=== PATIENT | female | born 2000 | race Caucasian/White ===

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

== ENCOUNTER 2021-05-24 17:25 | Outpatient (CLI) | payer MEDICAID, SELFPAY ==
[2021-05-24 17:36] VITALS: RESP 18
[2021-05-24 17:39] VITALS: RESP 17
[2021-05-24 17:42] VITALS: BP 123/70; PULSE 104
[2021-05-24 17:46] VITALS: BMI 36.7
[2021-05-24 18:23] LABS: Add Urine Culture? No; Bacteria Urine 1+ /hpf; Bilirubin Urine Neg (Negative); Blood Urine Neg (Negative); Glucose Urine UA Norm (Normal); Ketones Urine Negative (Negative); Leukocyte Esterase Urine Negative (Negative); Nitrate Urine Negative (Negative); Protein Urine Neg (Negative); RBC Urine RARE /hpf (0-2); Specific Gravity, Urine 1.005 (1.005-1.030); Squamous Epithelial Cell Urine RARE /hpf (0-5); Urine Appearance Clear (CLEAR); Urine Color Straw (Yellow); Urobilinogen Urine Neg (Negative); WBC Urine 0-4 /hpf (0-5); pH Urine 5 (5-7)
[2021-05-24 18:30] VITALS: RESP 17
[2021-05-24] MEDS: terbutaline 1 mg/mL INJ 0.25 MG SUBCUT (18:48)
[2021-05-24] MEDS: nitrofurantoin SR (BID) 100 mg Capsule PO (18:48)
[2021-05-24 19:40] VITALS: BP 115/58; PULSE 125
[2021-05-24 20:04] LABS: Nitrazine Paper, PH Negative
== END 2021-05-24 19:43 | disposition home or self-care (01) ==
LOC: OPOB 17:27 → OBGYN 17:28
PROVIDERS: Visit Provider Family Medicine
DX: O26.899 Other specified pregnancy related conditions, unspecified trimester (principal); Z3A.00 Weeks of gestation of pregnancy not specified; N89.8 Other specified noninflammatory disorders of vagina; R10.9 Unspecified abdominal pain
CPT/HCPCS: 59025; 81001; 83986; 96372; 99211; J3105

== ENCOUNTER 2021-06-17 12:00 | Outpatient (CLI) | payer MEDICAID, SELFPAY ==
[2021-06-17 12:19] VITALS: BP 120/72; PULSE 83
[2021-06-17 12:40] VITALS: BP 109/68; PULSE 82
[2021-06-17 13:04] VITALS: BP 109/68; PULSE 82; RESP 18; TEMP 36.9
== END 2021-06-17 12:55 | disposition home or self-care (01) ==
LOC: OPOB 12:06 → OBGYN 12:07
PROVIDERS: Visit Provider Family Medicine
DX: O26.899 Other specified pregnancy related conditions, unspecified trimester (principal); Z3A.00 Weeks of gestation of pregnancy not specified; R10.9 Unspecified abdominal pain; R10.2 Pelvic and perineal pain
CPT/HCPCS: 83986

== ENCOUNTER 2021-06-25 21:00 | Inpatient (IN) | payer MEDICAID, SELFPAY ==
[2021-06-25] VITALS (9 sets, daily range): BP systolic 116–129; BP diastolic 68–77; PULSE 81–112; RESP 16; TEMP 36.1–36.4; BMI 38.5
[2021-06-25] MEDS: dextrose 5%-lactated ringers 1,000 ML 125 ML IV (21:01)
[2021-06-25 21:07] LABS: Basophils % 0.2 %; Eosinophils # 0.1 10^3/uL (0.0-0.8); Eosinophils % 0.5 %; Hematocrit 34.1 % (37.0-47.0); Hemoglobin 11.1 g/dL (11.5-15.3); Lymphocytes # 2.3 10^3/uL (1.5-6.5); Lymphocytes % 21.4 %; Mean Corpuscular HGB Conc 32.6 g/dL (30.0-36.0); Monocytes # 0.9 10^3/uL (0.2-0.9); Monocytes % 8.7 %; Neutrophils # 7.23 10^3/uL (1.8-8.0); Neutrophils % 68.5 %; Nucleated Red Blood Cells % 0 %; Platelet Count 353 10^3/cmm (130-400); Red Blood Count 4.11 10^6/uL (4.1-5.3); Red Cell Distribution Width 15.3 % (12.1-15.1); White Blood Count 10.6 10^3/uL (4.5-13.0)
[2021-06-25] MEDS: miSOPROStol 100 mcg tablet 25 MCG VAGINAL (21:15)
[2021-06-26] VITALS (72 sets, daily range): BP systolic 105–147; BP diastolic 55–91; PULSE 67–147; RESP 16–19; TEMP 35.8–36.8; O2SAT 93–100
[2021-06-26] MEDS: miSOPROStol 100 mcg tablet 25 MCG VAGINAL ×2 (01:17→06:18)
[2021-06-26] MEDS: lactated ringers 1,000 ML 999 ML IV (05:49)
[2021-06-26] MEDS: oxytocin 30 UNIT/500 ML BAG IV (10:45)
[2021-06-26] MEDS: dextrose 5%-lactated ringers 1,000 ML 125 ML IV (15:20)
[2021-06-26] MEDS: fentaNYL 50 mcg/mL INJ 2mL IVP ×3 (16:10→18:27)
[2021-06-26] MEDS: ondansetron 2 mg/ML SDV 2 mL 4 MG IVP (18:03)
--- NOTE | 2021-06-26 19:00 | ANES.PAUD2 ---
Pre-Anesthetic Update Pre-Anesthetic Assessment: Date of Surgery/Procedure: 06/27/21 Proposed Procedure: Operation Date: 06/26/21 19:20 Proposed Procedures p Section(Not Applicable) - Zoila Levine MD Any changes to Pre-Anesthetic Assessment?: No Last Intake: Intake Last Liquid Date 06/25/21 Last Liquid Time 18:00 Last Solid Date 06/25/21 Last Solid Time 19:30 Labs Last 48hrs: Short CBC 06/25/21 06/27/21 Range/Units 20:40 08:00 WBC 10.6 20.3 H (4.5-13.0) 10^3/ uL Hgb 11.1 L 8.6 L (11.5-15.3) g/dL Hct 34.1 L 26.4 L (37.0-47.0) % MCV 83.0 84.1 (81-99) fl Plt Count 353 286 (130-400) 10^3/c mm Neut % (Auto) 68.5 % Neut # (Auto) 7.23 (1.8-8.0) 10^3/u L Vitals: Temperature 98.0 F 06/27/21 06:00 Temperature Source Oral 06/27/21 06:00 Pulse Rate 76 06/27/21 06:00 Pulse Rhythm 06/26/21 08:21 Pulse Strength 3+ Normal 06/26/21 08:21 Respiratory Rate 17 06/27/21 06:00 Respiratory Effort Non-Labored 06/26/21 18:27 Respiratory Depth Normal 06/26/21 18:27 Respiratory Patter n 06/26/21 18:27 Blood Pressure 115/74 06/27/21 06:00 Blood Pressure Jo n 87 06/27/21 06:00 Blood Pressure Pos ition Semi Fowlers 06/27/21 06:00 Pulse Oximetry 96 06/27/21 06:00 Oxygen Delivery Me thod 06/27/21 06:00 Other Pertinent Information: Other Pertinent Information: STAT for heart tones in 80s, unable to obtain updated history or NPO status, surgeon stating we don't have time for spinal, so GETA Cardiac Studies: No Data to Display
[2021-06-26] MEDS: terbutaline 1 mg/mL INJ (19:07)
[2021-06-26] MEDS: famotidine 20 mg/2 mL INJ IVP (19:19)
[2021-06-26] MEDS: metoclopramide 5 mg/mL SDV 2 mL 10 MG IV (19:19)
[2021-06-26] MEDS: citric acid-sodium citrate 30 mL UDC PO (19:19)
--- NOTE | 2021-06-26 19:39 | PC.NURSE ---
Terbutaline 0.25mg given subcutaneously at [address] Levine's emergent orders.
--- NOTE | 2021-06-26 20:19 | PM.OPHPUD ---
Labor & Delivery H&P Update Date of Procedure: June 26, 2021 Date H&P Performed: 06/20/21 Admission Diagnosis: IUP at 40 weeks 6 days gestation Planned procedure: Induction of labor
--- NOTE | 2021-06-26 20:20 | PM.OP ---
Operative Report Date of procedure: June 26, 2021 Pre-op diagnosis: IUP at 40 weeks 6 days gestation Nonreassuring heart tones Procedure done: Emergent primary low transverse section Specimens removed/disposition: Vertex female weight 7 pounds 5 ounces, 3305 g, Apgars 8 and 9 Surgeon: Zoila Levine MD Anesthesia: General Estimated blood loss (mL): 600 IV fluids (mL): 1,000 Brief History: This is a 20-year-old G1, P0 at 40 weeks 6 days gestation who was admitted for postdate induction. Her cervix was not favorable so she received Cytotec x3. She was then started on Pitocin. She underwent artificial rupture of membranes with a lightly meconium stained fluid. She declined an epidural but had fentanyl for pain management. She was slow to dilate. When she was 2 cm and completely effaced I placed an IUPC catheter and suddenly the FHTs decelerated. There was no bleeding and the IUPC was removed in its entirety but heart tones remained in the low 80s. We tried position changes and scalp stimulation but there was no response in HR. Emergent was called. Pt was positioned in hands and knees and finally FHTs recovered. Mother was kept in hands and knees position until she was transferred to the OR table. Procedure: The patient was urgently prepped and draped in normal sterile fashion in dorsal supine position with the left lateral tilt. General anesthesia was administered. A Pfannenstiel skin incision was made and carried through the underlying layer of fascia sharply. There was already diastases of the rectus muscles so the peritoneum was entered bluntly using my hand. The bladder blade was inserted and uterine incision was made in a transverse fashion in the lower uterine segment. Amniotic rupture of membranes was performed sharply. The infant was delivered atraumatically with bulb suction of the mouth and nares at delivery. The cord was clamped and cut and the infant was handed to the waiting pediatric team. Cord blood was obtained. Gentle traction on the cord and fundal pressure was used to deliver the placenta. As the placenta was delivered the uterus everted. The placenta was immediately removed in its entirety and the uterus was easily inverted. The uterus was then exteriorized from the abdomen and a dry sponge was used to clear the uterus of clots and debris. The uterine incision was repaired using 0 Vicryl in a running locked fashion. A second layer of 0 chromic was used in an imbricating manner. There was good hemostasis at the incision site. The uterus was rather floppy and boggy and Pitocin was added to the IV fluids. The uterus was returned to the abdomen and irrigation was used to clear the gutters of clots and debris. The uterine incision was reinspected for hemostasis. The peritoneum and rectus muscles were then gently reapproximated using 4-0 Vicryl in a running fashion. The fascia was then reapproximated using 0 Vicryl in a running fashion. The subcutaneous tissue was irrigated and any small bleeders were coagulated using the Bovie. The subcutaneous tissue was then reapproximated using 4-0 Vicryl. The skin was then reapproximated using 4-0 Vicryl in a running fashion on a Asif needle. Steri-Strips and a pressure bandage were applied. Patient was awakened in the OR and went to recovery in good condition. Sponge instrument and needle counts were correct.
[2021-06-27] VITALS (8 sets, daily range): BP systolic 103–118; BP diastolic 68–87; PULSE 64–103; RESP 16–18; TEMP 36.7–36.8; O2SAT 96–100
[2021-06-27] MEDS: HYDROcodone-acetaminophen 5-325 mg Tablet PO ×4 (01:13→21:40)
[2021-06-27] MEDS: dextrose 5%-lactated ringers 1,000 ML 125 ML IV ×2 (01:52→10:23)
[2021-06-27] MEDS: ketorolac 30 mg/mL INJ IVP ×2 (02:01→07:46)
[2021-06-27] MEDS: prenatal vitamin Capsule 1 CAP PO (07:46)
[2021-06-27] MEDS: docusate sodium 100 mg Capsule PO ×2 (07:46→18:17)
[2021-06-27 08:12] LABS: Hematocrit 26.4 % (37.0-47.0); Hemoglobin 8.6 g/dL (11.5-15.3); Mean Corpuscular HGB Conc 32.6 g/dL (30.0-36.0); Mean Corpuscular Hemoglobin 27.4 pg (28.0-34.0); Mean Corpuscular Volume 84.1 fl (81-99); Platelet Count 286 10^3/cmm (130-400); Red Blood Count 3.14 10^6/uL (4.1-5.3); Red Cell Distribution Width 15.7 % (12.1-15.1); White Blood Count 20.3 10^3/uL (4.5-13.0)
--- NOTE | 2021-06-27 09:51 | ANE.PACU2 ---
Inpatient post-anesthesia follow up: Airway intact: Yes Vital signs: Temperature 98.0 F Pulse Rate 76 Respiratory Rate 17 Blood Pressure 115/74 Pulse Oximetry 96 Oxygen Delivery Me thod Room Air Oxygen Flow Rate Fraction of Inspir ed Oxygen Hydration adequate: Yes Nausea and vomiting: No Pain level: 3 Mental status: Baseline Additional Comments: Patient had no questions or concerns regarding her anesthetic. No mention by patien tof any intraop recall julián-induction.
--- NOTE | 2021-06-27 16:53 | P.PN_ITS ---
Subjective Subjective: Patient just recently had a Bob removed so she has not voided yet. She is tolerating a liquid diet. She cannot quantify for me if her bleeding is like a heavy period regular or light. She says she only knows it just feels wet down there Vitals/I&O/Wt Last Vital Signs Temp 98.2 F 06/27/21 14:59 Pulse 64 06/27/21 14:59 Resp 18 06/27/21 14:59 BP 117/80 06/27/21 14:59 Pulse Ox 99 06/27/21 14:59 06/27/21 06/27/21 06/27/21 06:59 14:59 22:59 Intake Total 1000 / 1000 Output Total 400 / 400 800 / 1200 Balance 600 / 600 -800 / -200 Weight last 48 hrs Weight 78.018 kg Physical Exam Narrative: Alert and oriented sitting in bed, pupils equal round reactive to light, extraocular movements intact, abdomen is soft with appropriate postoperative tenderness, pressure dressing is still in place and is clean dry and intact, nonpitting extremity edema is present Urinary Catheter Management: Bob Latex: Cath Placed During This Visit: yes, but has since been removed by the nurse Reason for Continuing Indwelling Catheter: Decision to DC Catheter Urinary Catheter Date of Insertion: 06/26/21 Urinary Catheter Time of Insertion: 20:15 Date Urinary Catheter Removed: 06/27/21 Time Urinary Catheter Discontinued: 15:50 Data : 06/27/21 08:00 A&P Assessment and plan (1) Status post primary low transverse section: Routine postoperative and care. She was instructed to shower tonight and take off the pressure bandage. She should ambulate in the halls at least twice tonight. Status: Acute Attestations Medical Necessity Statement*: Routine postoperative and care Coding Level of Care Code Acute Rheumatology Nurse for Chg Fwd Diagnoses Status post primary low transverse section Z98.891
[2021-06-27] MEDS: ferrous sulfate EC 325 mg Tablet PO (18:16)
[2021-06-27] MEDS: ibuprofen 800 mg tablet PO (21:40)
[2021-06-28 04:43] VITALS: BP 112/74; PULSE 89; RESP 16; O2SAT 98
[2021-06-28 08:50] VITALS: BP 117/76; PULSE 103; RESP 16; TEMP 37.2
[2021-06-28] MEDS: ibuprofen 800 mg tablet PO ×2 (08:54→17:32)
[2021-06-28] MEDS: ferrous sulfate EC 325 mg Tablet PO ×2 (08:54→17:31)
[2021-06-28] MEDS: prenatal vitamin Capsule 1 CAP PO (08:54)
[2021-06-28] MEDS: docusate sodium 100 mg Capsule PO ×2 (08:54→17:32)
--- NOTE | 2021-06-28 12:17 | P.DS_ITS ---
Discharge Providers Date of Admission: 06/25/21 21:00 Date of Discharge: June 28, 2021 Attending Provider at Admission: Zoila Levine MD Attending Provider at Discharge: Zoila Levine MD Diagnoses at Discharge Discharge Diagnosis (1) Status post primary low transverse section: Status: Acute Reason for Visit Reason for Visit: induction Hospital Course Hospital Course This is a 20-year-old G1 now P1 who was admitted for postdate induction. She underwent emergency section for nonreassuring heart tones. She did well postoperatively. She was ambulating, tolerating a regular diet, had good pain control and decreased vaginal bleeding on the day of discharge. Physical Exam Narrative: Alert and oriented, sitting on the side of bed, heart regular rate and rhythm, lungs clear to auscultation bilaterally, abdomen is soft with appropriate postoperative tenderness, incision is intact, Steri-Strips are moist, there is nonpitting pedal edema. Urinary Catheter Management: Bob Latex: Cath Placed During This Visit: yes, but has since been removed by the nurse Reason for Continuing Indwelling Catheter: Decision to DC Catheter Urinary Catheter Date of Insertion: 06/26/21 Urinary Catheter Time of Insertion: 20:15 Date Urinary Catheter Removed: 06/27/21 Time Urinary Catheter Discontinued: 15:30 Discharge Data Studies Completed and Pending Laboratory Results WBC 20.3 10^3/uL (4.5-13.0) H 06/27/21 08:00 RBC 3.14 10^6/uL (4.1-5.3) L 06/27/21 08:00 Hgb 8.6 g/dL (11.5-15.3) L 06/27/21 08:00 Hct 26.4 % (37.0-47.0) L 06/27/21 08:00 MCV 84.1 fl (81-99) 06/27/21 08:00 MCH 27.4 pg (28.0-34.0) L 06/27/21 08:00 MCHC 32.6 g/dL (30.0-36.0) 06/27/21 08:00 RDW 15.7 % (12.1-15.1) H 06/27/21 08:00 Plt Count 286 10^3/cmm (130-400) 06/27/21 08:00 MPV 11.0 fL (7.4-10.4) H 06/27/21 08:00 Neut % (Auto) 68.5 % 06/25/21 20:40 Lymph % (Auto) 21.4 % 06/25/21 20:40 [place] % (Auto) 8.7 % 06/25/21 20:40 Eos % (Auto) 0.5 % 06/25/21 20:40 Baso % (Auto) 0.2 % 06/25/21 20:40 Neut # (Auto) 7.23 10^3/uL (1.8-8.0) 06/25/21 20:40 Lymph # (Auto) 2.3 10^3/uL (1.5-6.5) 06/25/21 20:40 [place] # (Auto) 0.9 10^3/uL (0.2-0.9) 06/25/21 20:40 Eos # (Auto) 0.1 10^3/uL (0.0-0.8) 06/25/21 20:40 Baso # (Auto) 0.0 10^3/uL (0.0-0.1) 06/25/21 20:40 Nucleated RBC % (auto) 0 % 06/25/21 20:40 Nucleated RBCs # 0.0 /100WBC 06/25/21 20:40 Vitals Last Vital Signs Temp 98.9 F 06/28/21 08:50 Pulse 103 H 06/28/21 08:50 Resp 16 06/28/21 08:50 BP 117/76 06/28/21 08:50 Pulse Ox 98 06/28/21 04:43 Discharge Plan Discharge Patient Disposition: Home Condition: Stable Prescriptions: New ibuprofen 800 mg Tablet 800 mg PO TID PRN (Reason: Abdominal Discomfort) Qty: 40 0RF hydrocodone-acetaminophen 5-325 mg Tablet 1 - 2 tab PO Q4H PRN (Reason: Moderate To Severe Pain) Qty: 12 0RF docusate sodium 100 mg Capsule 100 mg PO BID Qty: 60 0RF No Action No Known Home Medications 0RF Discharge Orders: Discharge Order (Routine); Ordered 06/28/21 Ordered By: Zoila Levine Discharge Diet: Usual diet Discharge Activity: Limit activity as instructed Patient Instructions: Opioid Safety Activity Restrictions/Additional Instructions: No lifting more than 10 lbs for 2 weeks. Nothing per vagina for 6 weeks. Discharge Attestations Time Spent in Discharge Care*: less than 30 min Quality Metrics Clinical Quality Measures [ No reported AMI, CVA or VTE this stay] Coding Level of Care Code Acute Chg FW DC note Diagnoses Status post primary low transverse section Z98.891
[2021-06-28 17:10] VITALS: BP 112/72; PULSE 114; RESP 16; TEMP 36.7
[2021-06-28] MEDS: HYDROcodone-acetaminophen 5-325 mg Tablet PO (17:32)
== END 2021-06-28 17:45 | disposition home or self-care (01) | DRG 788 ==
LOC: OPOB 06-26 04:37 → OBGYN 06-26 04:40
PROVIDERS: Admitting Provider Family Medicine; Visit Provider Family Medicine
PROC: 10D00Z1 Extraction of Products of Conception, Low, Open Approach (ICD-10-PCS; CPT 59514; principal; 2021-06-26 19:20)
DX: O48.0 Post-term pregnancy (principal); Z3A.40 40 weeks gestation of pregnancy; O76 Abnormality in fetal heart rate and rhythm complicating labor and delivery; O77.0 Labor and delivery complicated by meconium in amniotic fluid; Z37.0 Single live birth
CPT/HCPCS: 36415; 51702; 85025; 85027; J0330; J1100; J1885; J2405; J2704; J2765; J3010; J3105; J3490; J7030

== ENCOUNTER → 2022-09-02 16:35 | Outpatient (BNVA) | payer MEDICAID, SELFPAY | DX: Z34.90 Encounter for supervision of normal pregnancy, unspecified, unspecified trimester (principal); Z3A.01 Less than 8 weeks gestation of pregnancy | CPT/HCPCS: 81025 ==

== ENCOUNTER → 2024-04-17 11:38 | Outpatient (BNVA) | payer MEDICAID, SELFPAY | DX: N92.6 Irregular menstruation, unspecified (principal) | CPT/HCPCS: 81025 ==

== ENCOUNTER → 2024-05-11 13:33 | Outpatient (BNVA) | payer MEDICAID, SELFPAY | PROVIDERS: Visit Provider Nurse Practitioner Women's Health | DX: Z34.90 Encounter for supervision of normal pregnancy, unspecified, unspecified trimester (principal); N91.2 Amenorrhea, unspecified | CPT/HCPCS: 81025; 84702; 86850; 86900 ==

== ENCOUNTER → 2024-05-26 15:32 | Outpatient (BNVA) | payer SELFPAY | PROVIDERS: Visit Provider Nurse Practitioner Women's Health | DX: O26.91 Pregnancy related conditions, unspecified, first trimester (principal); Z3A.09 9 weeks gestation of pregnancy | CPT/HCPCS: 76801 ==

== ENCOUNTER → 2024-06-01 13:53 | Outpatient (BNVA) | payer SELFPAY | PROVIDERS: Visit Provider Nurse Practitioner Women's Health | DX: Z34.90 Encounter for supervision of normal pregnancy, unspecified, unspecified trimester (principal) | CPT/HCPCS: 80307; 84315; 84443; 85025; 86592; 86762; 86803; 86850; 86900; 87086; 87340; 87491; 87591; 87661; 87806 ==

== ENCOUNTER → 2024-06-16 14:23 | Outpatient (BNVA) | payer SELFPAY | PROVIDERS: Visit Provider Obstetrics & Gynecology | DX: Z34.90 Encounter for supervision of normal pregnancy, unspecified, unspecified trimester (principal) | CPT/HCPCS: 84315 ==

== ENCOUNTER → 2024-07-14 10:07 | Outpatient (BNVA) | payer SELFPAY | PROVIDERS: Visit Provider Obstetrics & Gynecology | DX: Z34.90 Encounter for supervision of normal pregnancy, unspecified, unspecified trimester (principal) | CPT/HCPCS: 84315 ==

== ENCOUNTER → 2024-08-11 09:26 | Outpatient (BNVA) | payer MEDICAID, SELFPAY | PROVIDERS: Visit Provider Obstetrics & Gynecology | DX: O26.892 Other specified pregnancy related conditions, second trimester (principal); Z3A.20 20 weeks gestation of pregnancy | CPT/HCPCS: 76805 ==

== ENCOUNTER → 2024-08-18 10:05 | Outpatient (BNVA) | payer MEDICAID, SELFPAY | PROVIDERS: Visit Provider Obstetrics & Gynecology | DX: Z34.80 Encounter for supervision of other normal pregnancy, unspecified trimester (principal) | CPT/HCPCS: 81000 ==

== ENCOUNTER → 2024-09-07 08:49 | Outpatient (BNVA) | payer MEDICAID, SELFPAY | PROVIDERS: Visit Provider Nurse Practitioner Women's Health | DX: Z34.80 Encounter for supervision of other normal pregnancy, unspecified trimester (principal) | CPT/HCPCS: 84315 ==

== ENCOUNTER → 2024-09-14 15:35 | Outpatient (BNVA) | payer MEDICAID, SELFPAY | PROVIDERS: Visit Provider Obstetrics & Gynecology | DX: O26.892 Other specified pregnancy related conditions, second trimester (principal); Z3A.25 25 weeks gestation of pregnancy | CPT/HCPCS: 76816 ==

== ENCOUNTER → 2024-10-04 14:17 | Outpatient (BNVA) | payer MEDICAID, SELFPAY | PROVIDERS: Visit Provider Obstetrics & Gynecology | DX: Z34.80 Encounter for supervision of other normal pregnancy, unspecified trimester (principal) | CPT/HCPCS: 82950; 84315; 85025 ==

== ENCOUNTER → 2024-10-19 14:47 | Outpatient (BNVA) | payer MEDICAID, SELFPAY | PROVIDERS: Visit Provider Nurse Practitioner Women's Health | DX: Z34.90 Encounter for supervision of normal pregnancy, unspecified, unspecified trimester (principal) | CPT/HCPCS: 84315 ==

== ENCOUNTER 2024-11-03 11:55 | Outpatient (CLI) | payer MEDICAID, SELFPAY ==
[2024-11-03 12:06] VITALS: BP 113/59; PULSE 96
[2024-11-03 12:12] VITALS: BMI 35.4
[2024-11-03 12:51] VITALS: BP 101/63; PULSE 93
== END 2024-11-03 12:55 | disposition home or self-care (01) ==
LOC: OPOB 11:55 → OBGYN 11:56
PROVIDERS: Visit Provider Obstetrics & Gynecology
DX: O26.899 Other specified pregnancy related conditions, unspecified trimester (principal); Z3A.00 Weeks of gestation of pregnancy not specified; R10.9 Unspecified abdominal pain
CPT/HCPCS: 59025; 99211

== ENCOUNTER → 2024-11-04 12:52 | Outpatient (BNVA) | payer MEDICAID, SELFPAY | PROVIDERS: Visit Provider Obstetrics & Gynecology | DX: Z34.90 Encounter for supervision of normal pregnancy, unspecified, unspecified trimester (principal) | CPT/HCPCS: 84315 ==

== ENCOUNTER → 2024-11-23 08:36 | Outpatient (BNVA) | payer MEDICAID, SELFPAY | PROVIDERS: Visit Provider Nurse Practitioner Women's Health | DX: Z34.80 Encounter for supervision of other normal pregnancy, unspecified trimester (principal) | CPT/HCPCS: 84315 ==

== ENCOUNTER 2024-11-29 12:46 | Outpatient (CLI) | payer MEDICAID, SELFPAY ==
--- NOTE | 2024-11-29 13:00 | USR_ITS ---
PROCEDURE INFORMATION: Exam: US , Follow up Exam date and time: 11/29/2024 1:03 PM Age: 24 years old Clinical indication: Screening exam; Routine US, uterus; Additional info: Z34.90 - encounter for supervision of normal , u. . . , Please schedule between 11/29 and 12/03 LABS AND CLINICAL REPORTS: Gestational age (Established): 36 w 6 d Estimated due date (Established): 12/21/2024 TECHNIQUE: Imaging protocol: Transabdominal ultrasound of the uterus, real time with image documentation. Follow-up (eg, re-evaluation of size by measuring standard growth parameters and amniotic fluid volume, re-evaluation of organ system(s) suspected or confirmed to be abnormal on a previous scan). COMPARISON: [place] [id number] 09/14/2024 3:43 PM FINDINGS: Gestation: Single live intrauterine in cephalic presentation. heart rate: 145 bpm Placenta: Placenta is posterior and fundal in location. Amniotic fluid index: JOSS is 11.76 cm. BIOMETRY: Estimated weight: 2992.06 g. EFW by AC, BPD, FL, HC, [place] 1985, 49% percentile Biparietal diameter (BPD): 9.17 cm. EGA (BPD) is 37 w 2 d. 74 % percentile Head circumference (HC): 31.98 cm. EGA (HC) is 36 w 0 d. 10 % percentile Abdominal circumference (AC): 32.52 cm. EGA (AC) is 36 w 3 d. 51.1 % percentile Femur length (FL): 7.24 cm. EGA (FL) is 37 w 0 d. 54.1 % percentile HC/AC: 0.98. (Normal range: 0.92 - 1.06) FL/HC: 22.64. (Normal range: 20.6 - 22.46) FL/BPD: 78.95. (Normal range: 71 - 87) FL/AC: 22.26. (Normal range: 20 - 24) MATERNAL: Cervix: Cervical length measures 4 cm. Cervix appears closed. US/[place] [id number] IMPRESSION: Single live intrauterine with a mean sonographic age of 36 weeks 5 days. This corresponds to a clinical age of 36 weeks 6 days. There has been appropriate interval growth since the prior study.
== END 2024-11-29 12:47 | disposition home or self-care (01) ==
LOC: RAD 12:47
PROVIDERS: PCP Family Medicine; Visit Provider Obstetrics & Gynecology
DX: Z34.93 Encounter for supervision of normal pregnancy, unspecified, third trimester (principal)
CPT/HCPCS: 76816

== ENCOUNTER → 2024-12-02 12:51 | Outpatient (BNVA) | payer MEDICAID, SELFPAY | PROVIDERS: PCP Family Medicine; Visit Provider Obstetrics & Gynecology | DX: Z34.90 Encounter for supervision of normal pregnancy, unspecified, unspecified trimester (principal) | CPT/HCPCS: 84315; 87081 ==

== ENCOUNTER → 2024-12-06 15:24 | Outpatient (BNVA) | payer MEDICAID, SELFPAY | PROVIDERS: PCP Family Medicine; Visit Provider Obstetrics & Gynecology | DX: Z34.90 Encounter for supervision of normal pregnancy, unspecified, unspecified trimester (principal) | CPT/HCPCS: 84315 ==

== ENCOUNTER → 2024-12-16 16:43 | Outpatient (BNVA) | payer MEDICAID, SELFPAY | PROVIDERS: Visit Provider Obstetrics & Gynecology | DX: Z34.90 Encounter for supervision of normal pregnancy, unspecified, unspecified trimester (principal) | CPT/HCPCS: 84315 ==

== ENCOUNTER 2024-12-21 05:05 | Inpatient (IN) | payer MEDICAID, SELFPAY ==
[2024-12-21] VITALS (108 sets, daily range): BP systolic 95–130; BP diastolic 51–87; PULSE 58–97; RESP 16; TEMP 35.9–36.6; O2SAT 90–100; BMI 37.6
--- NOTE | 2024-12-21 05:24 | PC.NURSE ---
Patient reports she last ate a [employer] bar at 0100, previous to this she ate dinner at 1830. Patient reports she last drank at 0500, patient states that she has been sipping on coffee with cream and sugar this morning.
[2024-12-21 05:36] LABS: Hematocrit 36.3 % (36-47); Hemoglobin 12.00 g/dL (11.27-16.99); Mean Corpuscular HGB Conc 33.1 g/dL (30-55); Mean Corpuscular Hemoglobin 28.6 pg (27-33); Mean Corpuscular Volume 86.6 fl (85-98); Nucleated Red Blood Cells % 0 %; Platelet Count 311 10^3/cmm (157-399); Red Blood Count 4.19 10^6/uL (3.85-5.65); White Blood Count 10.40 10^3/uL (3.29-11.43)
--- NOTE | 2024-12-21 07:11 | PM.OBGYHP ---
Providers/Chief Complaint Admitting Physician: Vitor Wheat MD Primary ELECTRONIC SEMICONDUCTOR PROCESSOR: Vitor Wheat MD Primary Care Provider: Kurt Thurman MD Chief Complaint: updated OBGYN HPI ELECTRONIC SEMICONDUCTOR PROCESSOR History of Present Illness Colleen Joiner is a 24 year old female EDC December 25, 2024 At 39 w 3 d No complications Admitted for repeat No c/o + movements h/o x one Present Details : 3 Para: 1 Labs Rubella: Immune RPR: Negative GBS: Negative Medications/Allergies Home Medications ?Medication ?Instructions ?Recorded ?Confirmed ?Last Taken ?Type PNV 153-FA 400 mcg-om3 35 mg-dha 1 tab PO DAILY 05/11/24 12/21/24 Unknown History 25 mg-epa 5 mg-fish oil chew tablet ( Gummies) Allergies Allergy/AdvReac Type Severity Reaction Status Date / Time No Known Allergies Allergy Verified 12/21/24 05:19 PFSH ELECTRONIC SEMIC[employer]UCTOR PROCESSOR PFSH: Medical History Chronic lower back pain Sacroiliac joint pain Chronic hip pain, bilateral Otitis externa of left ear Surgical History Status post primary low transverse section Social History Smoking and tobacco/nicotine status: former use of tobacco/nicotine Alcohol intake: never Substance/Drug Use: never Adopted: No service: No Current occupational exposures/hazards: No Personal Safety: Do you feel safe at home: Yes Victim of physical abuse: No Victim of emotional abuse: No Victim of sexual abuse: No Would you like help information on resources?: No History History History 3 Term 1 0 Miscarriages/Ectopic 1 Living Children 1 Care ALBERT Calculator Estimated Delivery Date Method Current WG Current Estimate 12/25/24 Ultrasound #1 39w 3d Expected Delivery Route/Plan DESIRES REPEAT Specific Issues/Plans PREGANCY NAUSESA AND VOMITING Vitals/I&O/Wt Last Vital Signs Pulse 86 12/21/24 07:03 BP 112/66 12/21/24 07:03 O2 Del Method Room Air 12/21/24 05:14 Weight last 48 hrs Weight 168 lb Weight 168 lb Physical Exam Narrative: Weight 164 lbs; 4?8? VS normal General comfortable, awake, alert Lungs: clear Cor: RRR FH 37 cm Ext: no edema External monitor: heart tracing good variability, + accelerations Data 12/21/24 05:26 Results Labs OB ([facility]): Obstetrics US 11/29/24 Blood Type O Positive Today Antibody Screen Negative Today Hct, (36-47) 36.3 % Today Hgb, (11.27-16.99) 12.00 g/dL Today Rho(D) Type Rh positive Today Plt Count, (157-399) 311 10^3/cmm Today Hep Bs Antigen, (Nonreactive) Non-reactive 06/01/24 Hepatitis C Antibody, (Nonreactive) Non-reactive 06/01/24 Rubella IgG Antibody, (0.0-10.0) 277.6 IU/mL H 06/01/24 RPR, (Nonreactive) Nonreactive 06/01/24 HIV 1&2 Ab & HIV 1 Ag, (Non-Reactiv) Non-reactive 06/01/24 TSH, (0.27-4.20) 0.70 uIU/mL 06/01/24 Glucose 1 Hr 50 gm, (85-140) 88 mg/dL 10/04/24 Ser , Semi-Qnt 63804.00 mIU/mL 05/11/24 HCG, Qual, (Negative) Positive H 05/11/24 Urine Opiates Screen, (Negative) Negative ng/mL 06/01/24 Ur Barbiturates Screen, (Negative) Negative ng/mL 06/01/24 Ur Phencyclidine Scrn, (Negative) Negative ng/mL 06/01/24 Ur Amphetamines Screen, (Negative) Negative ng/mL 06/01/24 U Benzodiazepines Scrn, (Negative) Negative ng/mL 06/01/24 Urine Cocaine Screen, (Negative) Negative ng/mL 06/01/24 U Marijuana (THC) Screen, (Negative) Negative ng/mL 06/01/24 Micro Urine Specimen 06/01/24 A&P Assessment and plan 1. : 39 w 3 d h/o x one patient wants repeat c-s for delivery admitted for repeat procedure and risks explained to patient Risks include, but not limited to, infection, bleeding, injury to internal organs, anesthesia, blood transfusions Patient understands and wants to proceed PDMP PDMP Reviewed: Not Reviewed Attestations Medical Necessity Statement*: patient at 39 w 3 d, admitted for repeat Coding Level of Care Code Acute Code for Chg Fwd Diagnoses Z34.90
[2024-12-21] MEDS: citric acid-sodium citrate 30 mL UDC PO (10:37)
[2024-12-21] MEDS: metoclopramide 5 mg/mL SDV 2 mL 10 MG IVP (10:38)
--- NOTE | 2024-12-21 10:54 | W.PM.OPSUD ---
Surgery/Procedure H&P Update DATE OF PROCEDURE: December 21, 2024 DATE H&P PERFORMED: 12/21/24 H&P UPDATE INFORMATION: I have reviewed H&P completed within last 30 days, I have examined patient prior to procedure and No changes to prior documentation PLANNED PROCEDURE: Operation Date: 12/21/24 07:20 Proposed Procedures p Section Repeat 60213, O34.219(Not Applicable) - Vitor Wheat MD
[2024-12-21] MEDS: ceFAZolin 2,000 mg SDV 2000 MG IVP (11:43)
--- NOTE | 2024-12-21 12:33 | ANE.PACU2 ---
Inpatient post-anesthesia follow up: Airway intact: Yes Vital signs: Temperature 97.2 F Pulse Rate 93 Respiratory Rate Blood Pressure 121/65 Pulse Oximetry Oxygen Delivery Me thod Room Air Oxygen Flow Rate Fraction of Inspir ed Oxygen Hydration adequate: Yes Nausea and vomiting: No Pain level: 1 Mental status: Baseline
--- NOTE | 2024-12-21 13:05 | PM.OP ---
Operative Report Date of procedure: December 21, 2024 Pre-op diagnosis: 39 ? weeks gestation Previous x one For repeat Post-op diagnosis: same Post-op findings: Vigorous female infant Normal placenta and cord Normal uterus, tubes, and ovaries Procedure done: Repeat low-transverse Implants: none Specimens removed/disposition: placenta and cord, discarded Surgeon: Vitor Wheat MD Anesthesia: Spinal Estimated blood loss (mL): 400 Complications: none Findings: see above Condition: stable Disposition: floor Brief History: Patient with previous , scheduled for repeat . Procedure: Patient was taken to the operating room, placed supine in the left lateral tilt position. Spinal anesthesia and a Bob catheter were already placed. The abdomen was prepped and draped in the usual sterile fashion. A Pfannenstiel incision was made over an old scar and carried down through skin and subcutaneous tissue and fascia. The fascial incision was extended laterally with Slater scissors. The fascia was from the underlying rectus muscles. The rectus muscles were split in the midline. The peritoneum was entered bluntly avoiding underlying organs. A bladder flap was created. A low transverse uterine incision was made and extended laterally bluntly avoiding the uterine vessels. Clear amniotic fluid was seen. The baby was delivered in cephalic presentation atraumatically. The baby was suctioned. The cord was clamped and cut and the baby was handed to an awaiting try out person. Cord blood was obtained. The placenta was manually removed intact. The uterine cavity was bluntly curetted with wet laps. The uterine incision was then closed with a continuous interlocking stitch of O chromic. Adequate hemostasis was seen. No bleeding was seen. The uterine incision was again inspected and found to have good hemostasis. The fascia was then closed with a continuous stitch of O-Vicryl. Additional interrupted stitches of O-Vicryl were used for fascial closure. The subcutaneous tissue was irrigated and inspected for hemostasis. The skin was then reapproximated using Insorb scottie. Postoperative condition stable Disposition to recovery room Estimated blood loss 400 cc, no replacement Sponge, needle, and instrument counts were correct x two There were no complications
[2024-12-21] MEDS: diphenhydrAMINE 50 mg/mL SDV 1mL 25 MG IVP (13:46)
--- NOTE | 2024-12-21 18:17 | PC.NURSE ---
pt stood at side of bed, julián care performed, pad and gown changed. pt assisted to sitting in chair. clear liquid tray provided.
[2024-12-22 00:53] LABS: Hematocrit 32.8 % (36-47); Hemoglobin 10.80 g/dL (11.27-16.99); Mean Corpuscular HGB Conc 32.9 g/dL (30-55); Mean Corpuscular Hemoglobin 29.0 pg (27-33); Mean Corpuscular Volume 87.9 fl (85-98); Platelet Count 237 10^3/cmm (157-399); Red Blood Count 3.73 10^6/uL (3.85-5.65); White Blood Count 11.63 10^3/uL (3.29-11.43)
[2024-12-22 03:36] VITALS: BP 116/61; PULSE 75
[2024-12-22 03:39] VITALS: RESP 16; TEMP 36.5
[2024-12-22] MEDS: PRENATAL VIT NO.130/IRON/FOLIC 1 EACH TABLET PO (04:10)
[2024-12-22 10:24] VITALS: BP 126/59; PULSE 95
--- NOTE | 2024-12-22 12:20 | P.PN_ITS ---
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 Subjective: Interval history: no c/o eating, voiding, ambulating well no pain, bleeding wants to go home without any difficulties Labor: Station: -4 Amniotic Membrane Status: Ruptured Monitor Mode: Palpation Contraction Pattern: Regular Vitals/I&O/Wt Last Vital Signs Temp 97.5 F L 12/22/24 15:55 Pulse 92 12/22/24 15:55 Resp 18 12/22/24 15:55 BP 131/60 12/22/24 15:55 Pulse Ox 94 12/21/24 18:07 O2 Del Method Room Air 12/21/24 05:14 Physical Exam 2 Narrative: General comfortable, awake, alert VS afebrile, normal Lungs: clear Cor: RRR Abd: soft, nontender Wound clean and dry Ext: no edema Urinary Catheter Management: Bob Latex Free: Cath Placed During This Visit: yes, but has since been removed by the nurse Reason for Continuing Indwelling Catheter: Decision to DC Catheter Urinary Catheter Date of Insertion: 12/21/24 Urinary Catheter Time of Insertion: 11:27 Date Urinary Catheter Removed: 12/21/24 Time Urinary Catheter Discontinued: 21:55 Data 12/22/24 00:40 A&P Assessment and plan 1. H/O: : POD #1 RCS doing well discharge home today instructions and precautions given no heavy lifting more than 15 lbs no intercourse x six weeks call/return if fever, chills, nausea, vomiting, headaches, abdominal pain, bleeding, inability to void, swelling, leg pain; feelings of depression or mood changes; wound redness, swelling, or discharge; chest pain; shortness of breath f/u in 1 week or PRN PDMP PDMP Reviewed: Not Reviewed Attestations 2 Medical Necessity Statement*: patient s/p , plan to discharge to home today Coding Level of Care Code Acute Code for Chg Fwd Diagnoses H/O: Z98.891
--- NOTE | 2024-12-22 13:05 | P.DS_ITS ---
Discharge Providers [employer] Date of Admission: 12/21/24 05:05 Date of Discharge: 12/22/24 Attending Provider at Admission: Vitor Wheat MD Attending Provider at Discharge: Vitor Wheat MD Consults: none Primary [employer]: Vitor Wheat MD Primary Care Provider: Kurt Thurman MD Diagnoses at Discharge Discharge Diagnosis 1. H/O: : Details from hospital stay: 23 y.o. [facility] December 25, 2024 At 39 w 3 d No complications h/o x one Admitted for repeat Repeat low-transverse was done without any complications Postoperatively, patient did well and wanted to go home. Patient was discharged to home on the first postoperative day. Reason for Visit Reason for Visit: updated OBGYN Brief History: 23 y.o. [facility] December 25, 2024 At 39 w 3 d No complications h/o x one Admitted for repeat Hospital Course Hospital Course 23 y.o. [facility] December 25, 2024 At 39 w 3 d No complications h/o x one Admitted for repeat Repeat low-transverse was done without any complications Postoperatively, patient did well and wanted to go home. Patient was discharged to home on the first postoperative day. Information Peripartum Data: Delivery Method: complications: none Physical Exam Narrative: General comfortable, awake, alert VS afebrile, normal Lungs: clear Cor: RRR Abd: soft, nontender Wound clean and dry Ext: no edema Urinary Catheter Management: Bob Latex Free: Cath Placed During This Visit: yes, but has since been removed by the nurse Reason for Continuing Indwelling Catheter: Decision to DC Catheter Urinary Catheter Date of Insertion: 12/21/24 Urinary Catheter Time of Insertion: 11:27 Date Urinary Catheter Removed: 12/21/24 Time Urinary Catheter Discontinued: 21:55 History History History 3 Term 2 0 Miscarriages/Ectopic 1 Living Children 2 Discharge Data Studies Completed and Pending Laboratory Results WBC 11.63 10^3/uL (3.29-11.43) H 12/22/24 00:40 RBC 3.73 10^6/uL (3.85-5.65) L 12/22/24 00:40 Hgb 10.80 g/dL (11.27-16.99) L 12/22/24 00:40 Hct 32.8 % (36-47) L 12/22/24 00:40 MCV 87.9 fl (85-98) 12/22/24 00:40 MCH 29.0 pg (27-33) 12/22/24 00:40 MCHC 32.9 g/dL (30-55) 12/22/24 00:40 RDW 14.6 % (12.1-15.1) 12/22/24 00:40 Plt Count 237 10^3/cmm (157-399) 12/22/24 00:40 MPV 10.8 fL (7.4-10.4) H 12/22/24 00:40 Neut % (Auto) 64.5 % 12/21/24 05:26 Lymph % (Auto) 27.6 % 12/21/24 05:26 Hubbard % (Auto) 6.3 % 12/21/24 05:26 Eos % (Auto) 0.5 % 12/21/24 05:26 Baso % (Auto) 0.3 % 12/21/24 05:26 Neut # (Auto) 6.72 10^3/uL (1.8-7.7) 12/21/24 05:26 Lymph # (Auto) 2.9 10^3/uL (0.8-4.8) 12/21/24 05:26 Hubbard # (Auto) 0.7 10^3/uL (0.2-0.9) 12/21/24 05:26 Eos # (Auto) 0.1 10^3/uL (0.0-0.8) 12/21/24 05:26 Baso # (Auto) 0.0 10^3/uL (0.0-0.1) 12/21/24 05:26 Nucleated RBC % (auto) 0 % 12/21/24 05:26 Nucleated RBCs # 0.0 /100WBC 12/21/24 05:26 Blood Type O Positive 12/21/24 05:26 Rho(D) Type Rh positive 12/21/24 05:26 Antibody Screen Negative 12/21/24 05:26 Procedures Performed repeat low-transverse Vitals Last Vital Signs Temp 97.5 F L 12/22/24 15:55 Pulse 92 12/22/24 15:55 Resp 18 12/22/24 15:55 BP 131/60 12/22/24 15:55 Pulse Ox 94 12/21/24 18:07 O2 Del Method Room Air 12/21/24 05:14 Results Labs OB ([facility]): Obstetrics US 11/29/24 Blood Type O Positive 12/21/24 Antibody Screen Negative 12/21/24 Hct, (36-47) 32.8 % L 12/22/24 Hgb, (11.27-16.99) 10.80 g/dL L 12/22/24 Rho(D) Type Rh positive 12/21/24 Plt Count, (157-399) 237 10^3/cmm 12/22/24 Hep Bs Antigen, (Nonreactive) Non-reactive 06/01/24 Hepatitis C Antibody, (Nonreactive) Non-reactive 05/15 11/08 Rubella IgG Antibody, (0.0-10.0) 277.6 IU/mL H 5 RPR, (Nonreactive) Nonreactive 06/01/24 HIV 1&2 Ab & HIV 1 Ag, (Non-Reactiv) Non-reactive TSH, (0.27-4.20) 0.70 uIU/mL 06/01/24 Glucose 1 Hr 50 gm, (85-140) 88 mg/dL 10/04/24 Ser , Semi-Qnt 08874.00 mIU/mL 05/11/24 HCG, Qual, (Negative) Positive H 05/11/24 Urine Opiates Screen, (Negative) Negative ng/mL 5 Ur Barbiturates Screen, (Negative) Negative ng/mL 06/01 Ur Phencyclidine Scrn, (Negative) Negative ng/mL Ur Amphetamines Screen, (Negative) Negative ng/mL 06/01 U Benzodiazepines Scrn, (Negative) Negative ng/mL 06/01 Urine Cocaine Screen, (Negative) Negative ng/mL 5 U Marijuana (THC) Screen, (Negative) Negative ng/mL Micro Urine Specimen 06/01/24 Discharge Plan Discharge Patient Disposition: Home Condition: Stable Prescriptions: No Action multivitamin Tablet 1 tab PO DAILY Discharge Order = DC NOW: Discharge Order (Routine); Ordered 12/22/24 Ordered By: Vitor Wheat Referrals: Vitor Wheat MD [Physician, [employer]] - 12/29/24 11:00 am Discharge Diet: Usual diet Discharge Activity: Increase activity as tolerated Patient Instructions: Depression (DC), Opioid Safety (DC), Preeclampsia and Eclampsia After Delivery (GEN), Hemorrhage (DC), OB [facility], OB Discharge Report, OB Food/Drug Interaction Guide, Opioid Safety, OB Home Care, Patient Portal & Sharri Instructions, Abnormal Bleeding Discharge Attestations [employer] Time Spent in Discharge Care*: less than 30 min Coding Level of Care Code Acute Code for Chg Fwd Diagnoses H/O: Z98.891
[2024-12-22 15:55] VITALS: BP 131/60; PULSE 92; RESP 18; TEMP 36.4
== END 2024-12-22 16:00 | disposition home or self-care (01) | DRG 807 ==
PROVIDERS: Admitting Provider Obstetrics & Gynecology; PCP Family Medicine; Visit Provider Obstetrics & Gynecology
PROC: 10E0XZZ Delivery of Products of Conception, External Approach (ICD-10-PCS; CPT 59514; principal; 2024-12-21 07:00)
DX: O34.211 Maternal care for low transverse scar from previous cesarean delivery (principal); Z37.0 Single live birth; Z3A.39 39 weeks gestation of pregnancy; N85.8 Other specified noninflammatory disorders of uterus
CPT/HCPCS: 36415; 51702; 59409; 83986; 85025; 85027; 86850; 86900; 96374; 96376; J0690; J1200; J1885; J2274; J2405; J2765; J3010; J3490; J7030; J7121; J9999

== ENCOUNTER → 2025-02-02 10:08 | Outpatient (BNVA) | payer MEDICAID, SELFPAY | PROVIDERS: PCP Family Medicine; Visit Provider Nurse Practitioner Women's Health | DX: Z30.430 Encounter for insertion of intrauterine contraceptive device (principal) | CPT/HCPCS: 81025 ==